=== PATIENT | male | born 1970 | race Two or more races ===

== ENCOUNTER 2023-04-08 20:07 | Emergency (ER) | payer OTHER ==
[~2023-04-08] VITALS: Ht 172.7 cm; Wt 125.1 kg
[2023-04-08] MEDS ORDERED: APIX5TAB PO (23:17)
[2023-04-08] MEDS ORDERED: SACU1TAB PO (23:17)
[2023-04-08 23:43] VITALS: BP 164/81; PULSE 87; RESP 18; TEMP 98.7; O2SAT 96
== END 2023-04-09 04:20 | disposition home or self-care (01) ==
LOC: ER 20:07
DX: I10 Essential (primary) hypertension (principal); E78.5 Hyperlipidemia, unspecified; Z76.0 Encounter for issue of repeat prescription; Z86.73 Personal history of transient ischemic attack (TIA), and cerebral infarction without residual deficits